=== PATIENT | male | born 1955 | race Caucasian/White ===

== ENCOUNTER → 2017-02-12 08:03 | Outpatient (CLI) | payer BC ==
[2011-01-17 23:41] VITALS: BMI 30.9
== END | disposition home or self-care (01) ==
LOC: D.MRI 02-10 09:30
DX: G51.0 Bell's palsy (principal)

== ENCOUNTER → 2017-10-10 12:17 | Outpatient (CLI) | payer MEDICAID, OTHER ==
[2011-01-17 23:41] VITALS: BMI 30.9
== END | disposition home or self-care (01) ==
LOC: D.US 12:17
DX: N50.9 Disorder of male genital organs, unspecified (principal)

== ENCOUNTER 2018-04-29 09:10 | Emergency (ER) | payer MEDICARE, OTHER ==
[~2018-04-29] VITALS: Ht 170.2 cm; Wt 90.9 kg
[2018-04-29 09:15] VITALS: Ht 170.2 cm; Wt 90.9 kg
[2018-04-29] MEDS ORDERED: BP MEDICATION (09:16)
[2018-04-29] MEDS ORDERED: ZOCOR40 MG PO (09:16)
[2018-04-29 09:32] LABS: BASOPHILS 0.4 % (0-2); EOSINOPHILS 3.5 % (0-7); HEMATOCRIT 42.7 % (42.0-54.0); IMMATURE GRANULOCYTES 0.1 % (0-5); LYMPHOCYTES 25.8 % (15-50); MCHC 35.1 g/dL (31.0-37.0); MEAN PLATELET VOLUME 8.9 fL (7.4-10.4); MONOCYTES 7.8 % (2-11); NEUTROPHILS 62.4 % (40-80); RBC 4.69 10x6/uL (4.20-6.10); RDW 13.6 % (11.5-14.5); WBC 8.6 10x3/uL (4.8-10.8)
[2018-04-29 09:33] LABS: PLATELET COUNT 206 10x3/uL (130-400)
[2018-04-29 09:37] LABS: APPEARANCE HAZY (CLEAR); BILIRUBIN NEGATIVE (NEGATIVE); COLOR YELLOW (YELLOW); GLUCOSE NEGATIVE (NEGATIVE); KETONE NEGATIVE (NEGATIVE); NITRITE NEGATIVE (NEGATIVE); PH 5.5 (5.0-6.0); PROTEIN TRACE mg/dL (NEGATIVE); SPECIFIC GRAVITY 1.025 (1.005-1.020); UROBILINOGEN NORMAL (NORMAL)
[2018-04-29 09:44] LABS: WHITE CELLS - URINE 0-5 /hpf (0-5)
[2018-04-29 09:45] LABS: BACTERIA MODERATE /hpf (NONE SEEN); EPITHELIAL CELLS OCC /hpf (0-5)
[2018-04-29 09:48] LABS: ALBUMIN 3.8 g/dL (3.4-5.0); ANION GAP 10.6 mmol/L (8-16); BILIRUBIN - TOTAL 0.51 mg/dL (0.2-1.3); CALCIUM 9.7 mg/dL (8.5-10.1); CARBON DIOXIDE 31.1 mmol/L (21.0-32.0); CREATININE - SERUM 1.1 mg/dL (0.6-1.3); POTASSIUM - SERUM 4.7 mmol/L (3.5-5.1); PROTEIN - SERUM 8.1 g/dL (6.4-8.2)
[2018-04-29] MEDS ORDERED: DILAUDID4 MG PO (11:04)
[2018-04-29 11:20] VITALS: BP 171/87
== END 2018-04-29 11:20 | disposition home or self-care (01) ==
LOC: D.ER 09:10
PROVIDERS: Emergency Medicine
DX: N23 Unspecified renal colic (principal); N20.0 Calculus of kidney

== ENCOUNTER 2018-08-15 15:02 | Inpatient (IN) | payer MEDICARE, OTHER ==
[~2018-08-15] VITALS: Ht 170.2 cm; Wt 89.1 kg
--- NOTE | ~2018-08-15 | MORECARE ---
CASE MANAGEMENT DISCHARGE SUMMARY PATIENT: ESTELLA BRAGG UNIT: [id number] ADM DATE: 08/16/18 AGE: 62 : 53 SEX: M ROOM/BED: D.2212 AUTHOR: RIVERA SANCHEZ PHYSICIAN: REFERRING PHYSICIAN: SERGEY DONOVAN DO DATE OF SERVICE: 08/18/18 Discharge Plan Patient Name: ESTELLA BRAGG Facility: [facility]:[place] : 1955 Planned Disposition: Home Anticipated Discharge Date: Discharge Date: Expected LOS: Initial Reviewer: [email or web address] Initial Review Date: 08/15/2018 Generated: 08/18/18 9:38 am Comments DCP- Discharge Planning Updated by [email or web address]: Vicenta Jimenes on 08/18/18 7:[address] Patient Name: ESTELLA BRAGG Encounter No: [id number] : 1955 Primary Insurance: MEDICARE PART A ONLY Anticipated DC Date: Planned Disposition: Home External Planned Provider: : DCP follow-up note: Patient and family in agreement with discharge plan. No changes to plan. Case management will follow and assist as needed. Vicenta Jimenes DCP- Discharge Planning Updated by [email or web address]: Vicenta Jimenes on 08/17/18 2:[address] Patient Name: ESTELLA BRAGG Admission Status: Urgent Accout number: [id number] Admission Date: 08-16-2018 : 1955 Admission Diagnosis: Attending: SERGEY DONOVAN Current LOS: 1 Anticipated DC Date: Planned Disposition: Home Primary Insurance: MEDICARE PART A ONLY Discharge Planning Comments: CM met with patient to assess discharge planning needs. Patient lives with his independently at home where he plans to return at discharge. He stated that his will be the one to drive him home. He denies any DME or community resources. Patient does not think he will need anything at discharge. He stated his home is safe. CM will continue to follow and assist with DC planning needs Oil Laboratory Analyst: Vicenta Jimenes DCPIA - Discharge Planning Initial Assessment Updated by [email or web address]: Vicenta Jimenes on 08/17/18 3:19 pm * Is the patient Alert and Oriented? Yes * How many steps to enter\exit or inside your home? * PCP Ale * Pharmacy [facility] * Preadmission Environment Home with Family * ADLs Independent * Equipment None * List name and contact numbers for known caregivers / representatives who currently or will assist patient after discharge: Barbara (spouse) [phone] * Verbal permission to speak to the caregivers and representatives has been obtained from the patient. N/A * Community resources currently utilized None * Additional services required to return to the preadmission environment? No * Can the patient safely return to the preadmission environment? Yes * Has this patient been hospitalized within the prior 30 days at any hospital? 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
--- NOTE | ~2018-08-15 | DS ---
PATIENT:ESTELLA BRAGG :53 MEDICAL RECORD: [id number] DISCHARGE SUMMARY ADMISSION DATE: 08/16/18 DISCHARGE DATE: 08/18/18 DATE OF ADMISSION: 08/15/2018 DATE OF DISCHARGE: 08/18/2018 ADMISSION DIAGNOSES: Left lower quadrant pain, leukocytosis, also history of rheumatoid arthritis with immunosuppressant therapy. DISCHARGE DIAGNOSES: Diverticulitis sigmoid colon, immunosuppressant therapy secondary to rheumatoid arthritis. HOSPITAL COURSE: The patient was admitted to the clinic with left lower quadrant abdominal pain, leukocytosis, progressively worsening pain. The patient was admitted, empirically started on IV antibiotics. CT was obtained, which showed left lower quadrant sigmoid diverticulitis with no perforation, no abscess. The patient had excellent response to IV antibiotics, changed to oral antibiotics. Remained afebrile and tolerating diet. Discharged to home in significantly improved condition. DISCHARGE MEDICATIONS: Per med rec. Continue probiotics. We will follow up in the clinic in 2 weeks and as needed. See chart for further details. TRANSINT:[id number] Voice Confirmation ID: [id number] DOCUMENT ID: [id number] SERGEY DONVOAN DO at 1655 CC: [id number] DICTATION DATE: 08/18/18 0801 HOME CHILD CARE PROVIDER: 08/18/18 0811 DIS IN 08/18/18 [facility] [address] [place] [address]
--- NOTE | ~2018-08-15 | MORECARE ---
CASE MANAGEMENT DISCHARGE SUMMARY PATIENT: ESTELLA BRAGG UNIT: [id number] ADM DATE: 08/16/18 AGE: 62 : 53 SEX: M ROOM/BED: D.2212 AUTHOR: RIVERA SANCHEZ PHYSICIAN: REFERRING PHYSICIAN: SERGEY DONOVAN DO DATE OF SERVICE: 08/21/18 Discharge Plan Patient Name: ESTELLA BRAGG Facility: [facility]:[place] : 1955 Planned Disposition: Home Anticipated Discharge Date: Discharge Date: 08/18/2018 Expected LOS: Initial Reviewer: [email or web address] Initial Review Date: 08/15/2018 Generated: 08/21/18 2:45 pm Comments DCP- Discharge Planning Updated by [email or web address]: Vicenta Jimenes on 08/18/18 7:[address] Patient Name: ESTELLA BRAGG Encounter No: [id number] : 1955 Primary Insurance: MEDICARE PART A ONLY Anticipated DC Date: Planned Disposition: Home External Planned Provider: : DCP follow-up note: Patient and family in agreement with discharge plan. No changes to plan. Case management will follow and assist as needed. Vicenta Jimenes DCP- Discharge Planning Updated by [email or web address]: Vicenta Jimenes on 08/17/18 2:[address] Patient Name: ESTELLA BRAGG Admission Status: Urgent Accout number: [id number] Admission Date: 08-16-2018 : 1955 Admission Diagnosis: Attending: SERGEY DONOVAN Current LOS: 1 Anticipated DC Date: Planned Disposition: Home Primary Insurance: MEDICARE PART A ONLY Discharge Planning Comments: CM met with patient to assess discharge planning needs. Patient lives with his independently at home where he plans to return at discharge. He stated that his will be the one to drive him home. He denies any DME or community resources. Patient does not think he will need anything at discharge. He stated his home is safe. CM will continue to follow and assist with DC planning needs Data Services Developer: Vicenta Jimenes DCPIA - Discharge Planning Initial Assessment Updated by [email or web address]: Vicenta Jimenes on 08/17/18 3:19 pm * Is the patient Alert and Oriented? Yes * How many steps to enter\exit or inside your home? * PCP Ale * Pharmacy [facility] * Preadmission Environment Home with Family * ADLs Independent * Equipment None * List name and contact numbers for known caregivers / representatives who currently or will assist patient after discharge: Barbara (spouse) [phone] * Verbal permission to speak to the caregivers and representatives has been obtained from the patient. N/A * Community resources currently utilized None * Additional services required to return to the preadmission environment? No * Can the patient safely return to the preadmission environment? Yes * Has this patient been hospitalized within the prior 30 days at any hospital? No Last DP export: 08/18/18 7:38 Patient Name: ESTELLA BRAGG Page [id number] at 1345 All edits/amendments must be made on the electronic document DICTATION DATE: 08/21/18 1345 PLATE TAKE OUT WORKER: RODRI 08/21/18 1345 RPT#: [id number] DC DATE:08/18/18 STATUS: DIS IN [facility] [address] [place] [address] END OF REPORT
--- NOTE | ~2018-08-15 | HP ---
PATIENT: ESTELLA BRAGG MEDICAL RECORD: [id number] ACCOUNT: [id number] LOCATION:D.MS [address] : [birth year] ADMISSION DATE: 08/15/18 PCP: SERGEY DONOVAN DO HISTORY AND PHYSICAL EXAMINATION HISTORY OF PRESENT ILLNESS: The patient presented to the clinic with [id number] left lower quadrant abdominal pain, worse last night, persist today; subjective fever and chills; history of diverticulosis; rheumatoid arthritis, he is on immunosuppressants; history of hypertension; has had abdominal pain for the past several days, getting progressively worse. CURRENT MEDICATIONS: Listed as simvastatin 40 mg daily; phenazopyridine 200 mg daily; pantoprazole 40 mg daily; metoprolol tartrate 50 mg twice a day; Humira 20 mg per 0.4 mL, 1 shot every other Tuesday. ALLERGIES: CELEBREX. FAMILY HISTORY: Significant for father with CVA and hypertension. Uncle with heart disease. Sister with cancer. SOCIAL HISTORY: , ninth grade education. 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 Former smoker, quit in 1983. REVIEW OF SYSTEMS: GENERAL: Loss of appetite with acute symptoms. No known change in weight. HEENT: No cephalgia, visual changes, tinnitus, epistaxis, or dysphagia. CARDIOVASCULAR: Denies chest pain, denies palpitations. PULMONARY: Denies hemoptysis, denies night sweats. GASTROINTESTINAL: Denies hematemesis, hematochezia, or melena. Does admit [id number] left lower quadrant abdominal pain, chills. Denies diarrhea. Does admit to constipation for the last 2 days. MUSCULOSKELETAL: Rheumatoid arthritis, he is on immunosuppressants. No acute changes. PHYSICAL EXAMINATION: VITAL SIGNS: Temp 98.2, blood pressure 140/84, heart rate 74, respirations 18, weight 196. GENERAL: Alert, oriented, moderate distress secondary to above. HEENT: Normocephalic, atraumatic. Eyes: Pupils are equally round and reactive to light and accommodation. Extraocular muscles intact. Conjunctivae not injected. Ears: Canals patent, TMs are intact. Nose: Nares patent without drainage. Throat: No erythema, no exudates. NECK: Supple. No lymphadenopathy, no JVD. HEART: Regular rate and rhythm. No S3, S4. No rub. LUNGS: Clear to auscultation bilaterally. Breathing is nonlabored. GASTROINTESTINAL: Hypoactive bowel sounds, left lower quadrant tenderness with guarding. MUSCULOSKELETAL: No acute changes. ENDOCRINE: Denies polyuria, polydipsia, or polyphagia. LABORATORY DATA: CBC: White count mildly elevated, which is concerning with his immunosuppressive treatment. White count is 11.9, hemoglobin 14.5, hematocrit 41.8, platelets 233, neutrophils 8.2. ASSESSMENT AND PLAN: Left lower quadrant abdominal pain, leukocytosis, on HISTORY AND PHYSICAL [id number] ESTELLA BRAGG immunosuppressants for rheumatoid arthritis. The patient is admitted. CT of the abdomen and pelvis with contrast. Diet n.p.o., IV normal saline at 80 mL per hour. CMP on admission. Metoprolol 50 mg b.i.d. UA, urine culture. Morphine 2 mg IV q.4 p.r.n. pain, Zofran 4 mg IV q.4 p.r.n. nausea and vomiting. CMP, CBC, magnesium, and phosphorus in a.m. Electrolyte protocol. Blood cultures times 2. Metronidazole 500 mg t.i.d., Cipro 500 mg IV q.12. TRANSINT:[id number] Voice Confirmation ID: [id number] DOCUMENT ID: [id number] SERGEY DONOVAN DO at 0735 CC: [id number] DICTATION DATE: 08/15/18 1509 RETAIL INTERIOR DESIGNER: 08/15/18 1606 ADM IN [place] [id number] [place] [address]
[~2018-08-15 15:02] MED LIST: BP MEDICATION; DILAUDID4 MG PO; ZOCOR40 MG PO
[2018-08-15 18:40] LABS: ALKALINE PHOSPHATASE 70 U/L (46-116); ALT (SGPT) 29 U/L (10-68); BILIRUBIN - TOTAL 1.28 mg/dL (0.2-1.3); CALC OSMOLALITY 278 mosm/kg (275-300); CALCIUM 9.4 mg/dL (8.5-10.1); CARBON DIOXIDE 26.8 mmol/L (21.0-32.0); CHLORIDE - SERUM 101 mmol/L (98-107); PROTEIN - SERUM 8.1 g/dL (6.4-8.2); SODIUM 140 mmol/L (136-145); UREA NITROGEN 12 mg/dL (7-18); eGFR NON AFRICAN AMERICAN 80 mL/min (90-120)
[2018-08-15 18:41] LABS: GLUCOSE 104 mg/dL (74-106)
[2018-08-16 05:00] LABS: BASOPHILS 0.1 % (0-2); EOSINOPHILS 2.6 % (0-7); HEMATOCRIT 39.1 % (42.0-54.0); HEMOGLOBIN 13.7 g/dL (13.5-17.5); IMMATURE GRANULOCYTES 0.3 % (0-5); LYMPHOCYTES 25.9 % (15-50); MCH 31.2 pg (26.0-34.0); MCV 89.1 fL (80.0-100.0); MEAN PLATELET VOLUME 9.5 fL (7.4-10.4); MONOCYTES 10.1 % (2-11); PLATELET COUNT 184 10x3/uL (130-400); RBC 4.39 10x6/uL (4.20-6.10); RDW 13.1 % (11.5-14.5); WBC 7.9 10x3/uL (4.8-10.8)
[2018-08-16 05:26] LABS: ALBUMIN 3.2 g/dL (3.4-5.0); ALKALINE PHOSPHATASE 58 U/L (46-116); BILIRUBIN - TOTAL 1.21 mg/dL (0.2-1.3); CALC OSMOLALITY 277 mosm/kg (275-300); CALCIUM 8.6 mg/dL (8.5-10.1); CARBON DIOXIDE 26.2 mmol/L (21.0-32.0); CHLORIDE - SERUM 104 mmol/L (98-107); CREATININE - SERUM 0.9 mg/dL (0.6-1.3); GLUCOSE 104 mg/dL (74-106); PHOSPHOROUS 3.2 mg/dL (2.5-4.9); POTASSIUM - SERUM 3.6 mmol/L (3.5-5.1); PROTEIN - SERUM 7.1 g/dL (6.4-8.2); SODIUM 140 mmol/L (136-145); UREA NITROGEN 11 mg/dL (7-18); eGFR NON AFRICAN AMERICAN > 90 mL/min (90-120)
[2018-08-16 05:48] LABS: ALT (SGPT) 12 U/L (10-68)
[2018-08-16 08:20] VITALS: BP 146/86
[2018-08-16] MEDS ORDERED: TOPROL XL50 MG PO (08:51)
[2018-08-16 08:54] VITALS: Ht 170.2 cm; Wt 89.1 kg
[2018-08-16 12:38] VITALS: BP 146/90
[2018-08-16] MEDS ORDERED: PROTONIX40 MG PO (18:44)
[2018-08-16 20:29] VITALS: BP 117/74
[2018-08-17 04:24] LABS: BASOPHILS 0.2 % (0-2); EOSINOPHILS 5.4 % (0-7); HEMATOCRIT 37.3 % (42.0-54.0); IMMATURE GRANULOCYTES 0.4 % (0-5); LYMPHOCYTES 28.2 % (15-50); MCH 30.9 pg (26.0-34.0); MCHC 34.9 g/dL (31.0-37.0); MCV 88.6 fL (80.0-100.0); MONOCYTES 11.8 % (2-11); PLATELET COUNT 191 10x3/uL (130-400); RBC 4.21 10x6/uL (4.20-6.10)
[2018-08-17 04:30] LABS: WBC 5.4 10x3/uL (4.8-10.8)
[2018-08-17 04:44] LABS: ALBUMIN 2.9 g/dL (3.4-5.0); ALKALINE PHOSPHATASE 50 U/L (46-116); CALC OSMOLALITY 282 mosm/kg (275-300); CALCIUM 8.2 mg/dL (8.5-10.1); CARBON DIOXIDE 25.2 mmol/L (21.0-32.0); CHLORIDE - SERUM 107 mmol/L (98-107); CREATININE - SERUM 0.8 mg/dL (0.6-1.3); GLUCOSE 101 mg/dL (74-106); MAGNESIUM - SERUM 2.1 mg/dL (1.8-2.4); POTASSIUM - SERUM 3.9 mmol/L (3.5-5.1); PROTEIN - SERUM 6.6 g/dL (6.4-8.2); SODIUM 142 mmol/L (136-145); UREA NITROGEN 12 mg/dL (7-18); eGFR NON AFRICAN AMERICAN > 90 mL/min (90-120)
[2018-08-17 04:51] LABS: ALT (SGPT) 20 U/L (10-68)
[2018-08-17 05:12] VITALS: BP 124/74
[2018-08-17 05:18] VITALS: BP 110/44
[2018-08-17 08:45] VITALS: BP 116/69
[2018-08-17 12:45] VITALS: BP 138/77
[2018-08-17 20:00] VITALS: BP 129/78
[2018-08-17 21:34] LABS: APPEARANCE CLEAR (CLEAR); BILIRUBIN 1+ (NEGATIVE); COLOR YELLOW (YELLOW); GLUCOSE 50 mg/dL (NEGATIVE); KETONE NEGATIVE (NEGATIVE); NITRITE NEGATIVE (NEGATIVE); PROTEIN NEGATIVE (NEGATIVE); SPECIFIC GRAVITY 1.015 (1.005-1.020)
[2018-08-17 21:38] LABS: BACTERIA FEW /hpf (NONE SEEN); EPITHELIAL CELLS 0-5 /hpf (0-5); RED CELLS - URINE 0-5 /hpf (0-5); WHITE CELLS - URINE 0-5 /hpf (0-5)
[2018-08-18] VITALS: BP 134/78
[2018-08-18 04:00] VITALS: BP 155/81
[2018-08-18 04:35] LABS: BASOPHILS 0.6 % (0-2); EOSINOPHILS 6.6 % (0-7); HEMATOCRIT 37.1 % (42.0-54.0); HEMOGLOBIN 12.9 g/dL (13.5-17.5); LYMPHOCYTES 34.3 % (15-50); MCH 30.8 pg (26.0-34.0); MCHC 34.8 g/dL (31.0-37.0); MCV 88.5 fL (80.0-100.0); MEAN PLATELET VOLUME 9.4 fL (7.4-10.4); MONOCYTES 10.9 % (2-11); NEUTROPHILS 47.6 % (40-80); PLATELET COUNT 201 10x3/uL (130-400); RBC 4.19 10x6/uL (4.20-6.10); RDW 13.1 % (11.5-14.5); WBC 5.3 10x3/uL (4.8-10.8)
[2018-08-18 04:39] LABS: CALC OSMOLALITY 283 mosm/kg (275-300); CALCIUM 8.3 mg/dL (8.5-10.1); CARBON DIOXIDE 26.6 mmol/L (21.0-32.0); CHLORIDE - SERUM 108 mmol/L (98-107); CREATININE - SERUM 0.9 mg/dL (0.6-1.3); GLUCOSE 120 mg/dL (74-106); POTASSIUM - SERUM 3.9 mmol/L (3.5-5.1); SODIUM 142 mmol/L (136-145); UREA NITROGEN 12 mg/dL (7-18); eGFR NON AFRICAN AMERICAN > 90 mL/min (90-120)
[2018-08-18] MEDS ORDERED: FLAGYL500 MG PO (07:57)
[2018-08-18] MEDS ORDERED: CIPRO500 MG PO (07:57)
[2018-08-18 09:01] VITALS: BP 139/79
== END 2018-08-18 12:06 | disposition home or self-care (01) | DRG 392 ==
LOC: D.SDCHOLD 15:02 → D.MS 15:02 → OBSVTIME 15:17 → D.MS 15:19
PROVIDERS: Family Medicine
DX: K57.32 Diverticulitis of large intestine without perforation or abscess without bleeding (principal); I10 Essential (primary) hypertension; M06.9 Rheumatoid arthritis, unspecified; Z79.899 Other long term (current) drug therapy